=== PATIENT | male | born 1940 | race Caucasian/White ===

== ENCOUNTER 2020-07-20 10:52 | Emergency (ER) | payer OTHER ==
[~2020-07-20] VITALS: Ht 172.7 cm; Wt 70.9 kg
--- NOTE | 2020-07-20 11:05 | NUR ---
No changes made to triage note, clicked "edit" instead of "view."
[2020-07-20 11:35] LABS: BASOPHILS % (AUTO) 1 % (0-1); EOSINOPHILS % (AUTO) 0 % (1-7); LYMPHOCYTES % (AUTO) 13 % (22-44); MEAN CORPUSCULAR HEMOGLOBIN 33.8 pg (27.5-34.5); MEAN CORPUSCULAR HGB CONC 35.2 g/dL (33.2-36.2); MEAN PLATELET VOLUME 7.1 fL (7.4-10.4); MONOCYTES % (AUTO) 14 % (2-9); NEUTROPHILS % (AUTO) 72 % (42-75); PLATELET COUNT 173 x10^3/uL (130-400); RED BLOOD COUNT 4.73 x10^6/uL (4.38-5.82); RED CELL DISTRIBUTION WIDTH 12.8 % (9.4-14.8)
[2020-07-20 11:38] LABS: MD NO
[2020-07-20 11:48] LABS: ALANINE AMINOTRANSFERASE 29 U/L (12-78); ALBUMIN 3.7 g/dL (3.4-5.0); ANION GAP 6 mmol/L (5-15); CALCIUM 8.7 mg/dL (8.5-10.1); CHLORIDE 102 mmol/L (98-107); CREATININE 0.78 mg/dL (0.7-1.3)
[2020-07-20 11:57] LABS: ALKALINE PHOSPHATASE 72 U/L (45-117); BILIRUBIN,TOTAL 0.4 mg/dL (0.2-1.0); TOTAL PROTEIN 7.6 g/dL (6.4-8.2)
--- NOTE | 2020-07-20 12:52 | NUR ---
Late entry note: Pt states his is positive, and he began experiencing sympotoms on Wednesday. Pt presents to the ER because he has a hx of PNA and wants a chest x-ray. VSS, pt remains connected to all monitors. Pt inquired about outpatient COVID IV abx. Pt educated that we need proof of his positive COVID test. Pt was swabbed at the health center and results are pending. Pt educated about returning to the ER after results. Pt has had call light in reach. All needs met.
[2020-07-20 13:17] VITALS: BP 133/76
== END 2020-07-20 13:31 | disposition home or self-care (01) ==
LOC: ED 11:43
DX: K52.9 Noninfective gastroenteritis and colitis, unspecified (principal); M79.10 Myalgia, unspecified site; R06.02 Shortness of breath; E78.5 Hyperlipidemia, unspecified
CPT/HCPCS: 36415; 71045; 80053; 85025; 99284

== ENCOUNTER 2020-07-20 14:59 | Emergency (ER) | payer OTHER ==
[~2020-07-20] VITALS: Ht 172.7 cm; Wt 71.0 kg
[2020-07-20] MEDS ORDERED: FILTER 0.22 MICRON IV ONE (16:00)
[2020-07-20] MEDS ORDERED: BAMLANIVIMAB 700 MG in SODIUM CHLORIDE 0.9% 250 ML IVPB ONE (16:15)
[2020-07-20 17:29] VITALS: BP 112/69
== END 2020-07-20 18:45 | disposition home or self-care (01) ==
LOC: ED 17:06
DX: U07.1 COVID-19 (principal)
CPT/HCPCS: J7050; M0239; Q0239; 99282